=== PATIENT | female | born 1955 | race African-American/Black ===

== ENCOUNTER 2017-10-07 22:43 | Emergency (ER) | payer MEDICARE, MEDICAID ==
[~2017-10-07] VITALS: Ht 165.1 cm; Wt 81.6 kg
[~2017-10-07 22:43] MED LIST: CLONIDINE0.1 MG PO; CYCLOBENZAPRINE10 MG ORAL; HUMALOG100 UNIT/3 SUBQ; IBUPROFEN800 MG ORAL; LISINOPRIL40 MG ORAL; LYRICA75 M1 ORAL; NORCO 5-325 TA1 EACH ORAL; NORVASC10 MG ORAL; NOVOLOG100 UNIT/3 SUBQ; ZOFRAN ODT4 MG ORAL
[2017-10-07] MEDS ORDERED: LANTUS SOL100 UNIT/1 SUBQ (22:58)
[2017-10-08 00:05] VITALS: BP 150/80
[2017-10-08] MEDS ORDERED: CYCLOBENZAPRINE10 MG ORAL (00:43)
[2017-10-08] MEDS ORDERED: CEPHALEXIN500 MG ORAL (00:43)
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
[2017-10-08] MEDS ORDERED: Norco 5mg/325mg tab ORAL ONE (01:00)
[2017-10-08 01:05] VITALS: BP 150/80
== END 2017-10-08 01:05 | disposition home or self-care (01) ==
LOC: EMR 23:20
DX: S01.511A Laceration without foreign body of lip, initial encounter (principal); Y04.2XXA Assault by strike against or bumped into by another person, initial encounter; Y92.89 Other specified places as the place of occurrence of the external cause; E11.9 Type 2 diabetes mellitus without complications
CPT/HCPCS: 99284

== ENCOUNTER 2018-06-10 00:49 | Emergency (ER) | payer MEDICARE, MEDICAID ==
[~2018-06-10] VITALS: Ht 165.1 cm; Wt 81.6 kg
[~2018-06-10 00:49] MED LIST changes: +CEPHALEXIN500 MG ORAL; +LANTUS SOL100 UNIT/1 SUBQ
[2018-06-10 01:08] VITALS: BP 134/75
[2018-06-10] MEDS ORDERED: AMOXICILLIN500 MG ORAL (01:24)
[2018-06-10] MEDS ORDERED: VALACYCLOVIR500 MG ORAL (01:24)
[2018-06-10] MEDS ORDERED: PREDNISONE20 MG ORAL (01:24)
--- NOTE | 2018-06-10 01:26 | Emergency Room Report ---
History of Present Illness General Chief Complaint: Neck Pain Source: Patient Present Illness HPI Is a 63-year-old female with history hypertension diabetes. She presents with chief complaint of left facial droop. Has been ongoing for 3 days. No nausea no vomiting. No other focal deficit. No fever or chills. Her second complaint is dental pain and pain to the left jaw. Onset for couple days but no fever chills but no drainage. No swelling. Pain is 7 out of 10. Allergies: Coded Allergies: No Known Allergies (Unverified , 06/05/13) Patient History Past Medical History: see triage record, old chart reviewed, DM, HTN Past Surgical History: other Pertinent Family History: none Social History: Denies: smoking Last Menstrual Period: SIGRID Now: No Immunizations: other Reviewed Nursing Documentation: PMH: Agreed; PSxH: Agreed Nursing Documentation-PMH Past Medical History: No History, Except For Hx Hypertension: Yes Hx Diabetes: Yes Hx Cancer: No Hx Gastrointestinal Problems: Yes Hx Neurological Problems: No - dejenerative disc disease Review of Systems Eye: Denies: eye pain, blurred vision ENT: Denies: ear pain, nose congestion, throat swelling Respiratory: Denies: cough, shortness of breath Cardiovascular: Denies: chest pain, palpitations Gastrointestinal: Denies: abdominal pain, diarrhea, nausea, vomiting Musculoskeletal: Denies: back pain, joint pain Skin: Denies: rash Neurological: Reports: focal weakness; Denies: headache, numbness Endocrine: Denies: increased thirst, increased urine Hematologic/Lymphatic: Denies: easy bruising All Other Systems: negative except mentioned in HPI Physical Exam Vital Signs Date Time Temp Pulse Resp B/P (MAP) Pulse Ox O2 Delivery O2 Flow Rate FiO2 06/10/18 00:59 97.9 68 16 134/75 98 Room Air vitals normal Sp02 EP Interpretation: reviewed, normal General Appearance: well appearing, no apparent distress, alert Head: normocephalic, atraumatic Eyes: bilateral eye PERRL, bilateral eye EOMI ENT: hearing grossly normal, normal pharynx, other - Percussive tenderness over the first molar on the left lower jaw Neck: full range of motion, supple, no meningismus Respiratory: chest non-tender, lungs clear, normal breath sounds Cardiovascular #1: regular rate, rhythm, no murmur Gastrointestinal: normal bowel sounds, non tender, no mass, no organomegaly, no bruit, non-distended Musculoskeletal: back normal, gait/station normal, normal range of motion Neurologic: alert, oriented x3, other - Left facial droop involving the forehead also Psychiatric: mood/affect normal Skin: warm/dry Medical Decision Making Diagnostic Impression: Primary Impression: Cali palsy Additional Impression: Pain, dental ER Course Patient presents with Cali's palsy. No evidence of CVA or dissection. We'll discharge home. Last Vital Signs Date Time Temp Pulse Resp B/P (MAP) Pulse Ox O2 Delivery O2 Flow Rate FiO2 06/10/18 00:59 97.9 68 16 134/75 98 Room Air Status: unchanged Disposition: HOME, SELF-CARE Condition: Stable Scripts Amoxicillin* (AMOXIL*) 500 Mg Capsule 500 MG ORAL THREE TIMES A DAY, #21 CAP Prov: Dion Vizcarra MD 06/10/18 Prednisone* (PREDNISONE*) 20 Mg Tablet 60 MG ORAL DAILY, #21 TAB Prov: Dion Vizcarra MD 06/10/18 Valacyclovir Hcl* (VALTREX*) 500 Mg Tablet 1000 MG ORAL TID, #21 TAB Prov: Dion Vizcarra MD 06/10/18 Additional Instructions: Follow-up with your dentist CAROLYN. Follow-up your doctor in a week. Return if symptom worsen. Recommend an eye patch at night to prevent drying or foreign body in the left eye. Dion Vizcarra MD Jun 10, 2018 01:26
[2018-06-10 01:30] VITALS: BP 134/75
== END 2018-06-10 01:30 | disposition home or self-care (01) ==
LOC: EMR 01:09
DX: G51.0 Bell's palsy (principal); K08.89 Other specified disorders of teeth and supporting structures; I10 Essential (primary) hypertension; E11.9 Type 2 diabetes mellitus without complications
CPT/HCPCS: 99282; J7512